=== PATIENT | male | born 1995 | race Caucasian/White ===

== ENCOUNTER 2021-12-27 11:59 | Emergency (ER) | payer OTHER ==
[~2021-12-27] VITALS: Ht 180.3 cm; Wt 183.0 kg
[2021-12-27] MEDS ORDERED: TETANUS-DIPTH-ACEL PERTUSSIS 0.5ML SYR Tdap IM ONE (13:30)
[2021-12-27 13:59] LABS: Basophils # (auto) 0.1 10 ^3/uL (0-0.2); Basophils % (auto) 0.6 % (0.0-2.0); Eosinophils # (auto) 0 10 ^3/uL (0-0.8); Eosinophils % (auto) 0.1 % (0.0-7.0); Hemoglobin 15.5 g/dL (13.5-17.5); Lymphocytes % (auto) 8.8 % (10.0-50.0); Mean Corpuscular Hemoglobin 30.4 pg (28.0-32.0); Monocytes # (auto) 0.5 10 ^3/uL (0-1.3); Monocytes % (auto) 4.9 % (0.0-12.0); Neutrophils # (auto) 9.6 10 ^3/uL (1.6-8.6); Neutrophils % (auto) 85.6 % (37.0-80.0); Red Blood Cells 5.11 10^6/uL (4.5-5.90); White Blood Cell 11.3 10^3/uL (4.4-10.8)
[2021-12-27 14:27] LABS: Alanine Aminotransferase 24 U/L (16-61); Albumin 4.2 g/dL (3.4-5.0); Anion Gap 8 (5-15); Aspartate Aminotransferase 18 U/L (15-37); Blood Alcohol < 3.0 mg/dL (0-5); Blood Urea Nitrogen 10 mg/dL (7-18); Carbon Dioxide 22 mmol/L (21-32); Chloride 107 mmol/L (98-107); Glucose 95 mg/dL (74-106); Potassium 3.9 mmol/L (3.5-5.1); Sodium 137 mmol/L (136-145)
[2021-12-27 14:30] LABS: Alkaline Phosphatase 78 U/L (45-117); BUN/Creatinine Ratio 13.2; Bilirubin, Total 0.3 mg/dL (0.2-1.0); GFR African American 157 mL/min; GFR Non-African American 130 mL/min; Total Protein 8.2 g/dL (6.4-8.2)
[2021-12-27 15:16] LABS: Acetaminophen < 2.0 ug/mL (10-30); Salicylate < 1.7 mg/dL (2.8-20.0)
[2021-12-27 18:25] VITALS: BP 136/64
== END 2021-12-27 18:40 | disposition home or self-care (01) ==
LOC: ER 11:59 → EEVIPCON 11:59 → ER 18:30
DX: S61.512A Laceration without foreign body of left wrist, initial encounter (principal); W26.9XXA Contact with unspecified sharp object(s), initial encounter; Y93.89 Activity, other specified; Y92.89 Other specified places as the place of occurrence of the external cause; Y99.8 Other external cause status
CPT/HCPCS: 12002; 36415; 80053; 80320; 80329; 85025; 90471; 90715